=== PATIENT | female | born 1965 | race Hispanic/Latino ===

== ENCOUNTER 2020-05-13 09:45 | Emergency (ER) | payer BC, OTHER | END 2020-05-13 11:00 | disposition home or self-care (01) | LOC: ERS 09:45 | DX: U07.1 COVID-19 (principal); I10 Essential (primary) hypertension; E78.00 Pure hypercholesterolemia, unspecified; E11.9 Type 2 diabetes mellitus without complications | CPT/HCPCS: 99283 ==